=== PATIENT | female | born 1980 | race Caucasian/White ===

== ENCOUNTER 2017-04-03 19:01 | Emergency (ER) | END 2017-04-03 20:44 | disposition home or self-care (01) ==

== ENCOUNTER 2018-03-30 17:00 | Emergency (ER) | payer MEDICAID ==
[~2018-03-30] VITALS: Wt 67.0 kg
[~2018-03-30 17:00] MED LIST: ACYC800T5 PO; BEN50 PO; CIPR500T4 PO; HYDR-4011 PO; IBUP-1542 PO; PRED50TA PO; PREN-39 PO
[2018-03-30] MEDS ORDERED: IBUPROFEN 600 MG TAB PO ONE (18:30)
[2018-03-30] MEDS ORDERED: IBUP-1542 PO (18:36)
--- NOTE | 2018-03-30 18:37 | ERD ---
ER Documentation Chief Complaint Chief Complaint FLU LIKE SYMPTOMS X 2 DAY HPI 37-year-old female presenting with generalized body aches since yesterday. She has had sick contacts at home. She has no other complaints. She denies any sore throat, cough, headache, chest pain, shortness of breath, abdominal pain, dysuria or hematuria. She is not . ROS All systems reviewed and are negative except as per history of present illness. Medications Home Meds Active Scripts Ibuprofen* (Motrin*) 600 Mg Tab, 600 MG PO Q6H PRN for PAIN AND OR ELEVATED TEMP, #30 TAB Prov:ANGIE CLIFFORD MD 03/30/18 Diphenhydramine Hcl* (Benadryl*) 50 Mg Cap, 50 MG PO Q6H PRN for ITCHING/RASH, #30 CAP Prov:ADRIAN BRANNON NP 04/03/17 Ibuprofen* (Motrin*) 600 Mg Tab, 600 MG PO Q6H PRN for PAIN AND OR ELEVATED TEMP, #30 TAB Prov:ADRIAN BRANNON NP 04/03/17 Prednisone* (Prednisone*) 50 Mg Tablet, 50 MG PO DAILY for 5 Days, TAB Prov:ADRIAN BRANNON NP 04/03/17 Acyclovir* (Zovirax*) 800 Mg Tablet, 800 MG PO 5 TIMES DAILY for 7 Days, TAB Prov:ADRIAN BRANNON NP 04/03/17 Hydrocodone/Acetaminophen ([place] 5-325 Tablet) 1 Each Tablet, 1 TAB PO Q6H PRN for PAIN, #7 TAB Prov:HUGO SOTO PA-C 02/11/16 Ciprofloxacin Hcl* (Ciprofloxacin Hcl*) 500 Mg Tablet, 500 MG PO BID for 7 Days, TAB Prov:HUGO SOTO PA-C 02/11/16 Reported Medications Vits W-Ca,Fe,Fa(<1MG) ( Vitamins) 1 Tab Tablet, 1 TAB PO DAILY 05/07/13 Allergies Allergies: Coded Allergies: No Known Allergies (Unverified Allergy, Unknown, 09/01/13) PMhx/Soc History of Surgery: No Anesthesia Reaction: No Hx Neurological Disorder: No Hx Respiratory Disorders: No Hx Cardiac Disorders: No Hx Psychiatric Problems: No Hx Miscellaneous Medical Probl: No Hx Alcohol Use: No Hx Substance Use: No Hx Tobacco Use: No FmHx Family History: No diabetes Physical Exam Vitals Vital Signs Date Temp Pulse Resp B/P (MAP) Pulse Ox O2 O2 Flow FiO2 Time Delivery Rate 03/30/18 97.1 60 18 118/73 97 Room Air 19:44 (88) 03/30/18 98.0 68 18 123/68 99 17:12 (86) Physical Exam Const: No acute distress Head: Atraumatic Eyes: Normal Conjunctiva ENT: Normal External Ears, Nose and Mouth. Neck: Full range of motion. No meningismus. Resp: Clear to auscultation bilaterally Cardio: Regular rate and rhythm, no murmurs Abd: Soft, non tender, non distended. Normal bowel sounds Skin: No petechiae or rashes Back: No midline or flank tenderness Ext: No cyanosis, or edema Neur: Awake and alert Psych: Normal Mood and Affect Results 24 hrs Current Medications Medications Dose Sig/Gladys Start Time Status Last (Trade) Ordered Route PRN Stop Time Admin Dose Reason Admin Ibuprofen 600 mg ONCE ONCE 03/30/18 DC 03/30/18 (Motrin) PO 18:30 18:40 03/30/18 18:31 Procedures/MDM Patient is presenting with myalgias, likely secondary to a flulike illness. I doubt rhabdomyolysis. Vitals are stable and she is afebrile and well-appearing on exam. She was treated with ibuprofen for her pain. Prescription for ibuprofen given. Recommended plenty of rest and fluids. Return precautions given. Patient's blood pressure was elevated (>120/80) but appears stable without evidence of hypertension emergency or urgency. The patient was counseled about the risks of hypertension and urged to pursue outpatient monitoring and therapy within a week with their primary care physician. Departure Diagnosis: Primary Impression: Body aches Condition: Stable Patient Instructions: Myalgias [facility] Usted se matias hecho un examen mdico de control que le indica que no est en hailee condicin que requiera tratamiento urgente en el Departamento de Emergencia. Un estudio ms profundo y el tratamiento de argueta condicin pueden esperar sin ningn riesgo hasta que usted sea atendida/o en el consultorio de argueta mdico o hailee clnica. Es responsabilidad suya arreglar hailee leona para el seguimiento del rosa. MANEJO DE CONDICIONES NO URGENTES EN EL FUTURO 1) Si usted tiene un mdico de atencin primaria: Usted debera llamar a argueta mdico de atencin primaria antes de venir al departamento de emergencia. Despus de las horas de consultorio, argueta doctor o argueta asociado/a est disponible por telfono. El mdico o enfermero de johnathon en el servicio telefnico puede asesorarle por esperanza medio para atender el problema, o rosa contrario se puede programar hailee leona. 2) Si usted no tiene un mdico de atencin primaria: Llame al mdico o clnica de referencia que aparece abajo agustin las horas de consultorio para hacer hailee leona para que le vean. CLINICAS: [facility] [phone] [facility] [phone] [facility] [phone] [facility] [phone] [facility] [phone] [id number] [facility]. [phone] [place] Mar 30, 2018 18:37
[2018-03-30 19:44] VITALS: BP 118/73; PULSE 60; RESP 18
[2018-04-27] MEDS ORDERED: BACL10TA PO (12:12)
[2018-04-27] MEDS ORDERED: IBUP-1542 PO (12:12)
== END 2018-03-30 19:45 | disposition home or self-care (01) ==
LOC: FTE 17:00
DX: R52 Pain, unspecified (principal)
CPT/HCPCS: Z7502; Z7610; 99282